=== PATIENT | male | born 1960 | race American Indian/Alaskan Native ===

== ENCOUNTER 2020-06-09 21:25 | Emergency (ER) | payer SELFPAY ==
[2020-06-09] MEDS ORDERED: ONDANSETRON 4 MG ODT TAB PO ONE (21:52)
[2020-06-09 22:09] LABS: Basophils % (Auto) 0.2 % (0.0-1.8); Hematocrit 37.4 % (35.5-45.6); Hemoglobin 12.3 gm/dl (11.8-15.2); Lymphocytes # (Auto) 1.8 K/mm3 (1.2-5.4); Lymphocytes % (Auto) 16.9 % (13.4-35.0); Mean Corpuscular HGB Conc 33 % (32-34); Mean Corpuscular Volume 98 fl (84-94); Monocytes # (Auto) 0.6 K/mm3 (0.0-0.8); Platelet Count 192 K/mm3 (140-440); Red Cell Distribution Width 11.5 % (13.2-15.2)
--- NOTE | 2020-06-09 22:39 | XRay Report ---
CHEST 2 VIEWS INDICATION / CLINICAL INFORMATION: MAHESH. COMPARISON: None available. FINDINGS: SUPPORT DEVICES: None. HEART / MEDIASTINUM: No significant abnormality. LUNGS / PLEURA: No significant pulmonary or pleural abnormality. No pneumothorax. ADDITIONAL FINDINGS: No significant additional findings. IMPRESSION: 1. No acute findings. Signer Name: Nora Chavez MD Signed: 06/09/2020 10:35 PM Workstation Name: [id number]
[2020-06-09 22:41] LABS: Albumin 3.3 g/dL (3.9-5); Calcium 9.3 mg/dL (8.4-10.2)
[2020-06-09] MEDS ORDERED: SODIUM CHLORIDE 0.9% 1000 ML 1,000 ML IV ONE (23:36)
[2020-06-09] MEDS ORDERED: FAMOTIDINE 20 MG/2 ML INJ IV ONE (23:36)
[2020-06-09] MEDS ORDERED: ONDANSETRON 4 MG/2 ML INJ IV ONE (23:36)
[2020-06-09] MEDS ORDERED: PANTOPRAZOLE 40 MG INJ IV ONE (23:36)
--- NOTE | 2020-06-10 01:26 | Emergency Department Report ---
ED N/V/D HPI - General Chief complaint: Dyspnea/Respdistress Stated complaint: MAHESH/VOMITING Time Seen by Provider: 06/09/20 23:29 Source: patient Mode of arrival: Ambulatory Limitations: No Limitations - History of Present Illness Initial comments: Patient is a 59-year-old F [place] male with past medical history of hypertension diabetes and renal insufficiency who is presenting with nausea vomiting. Patient tested positive for COVID-19 4 days ago. States the cough is very minimal and he has no shortness of breath. Patient states for the past day he has had nausea vomiting and mild diarrhea. Has a burning sensation epigastrium. Also states he has elevated blood pressure since he was not able to keep down his blood pressure medicines today. Patient states he feels as though he may be dehydrated. - Related Data Home Medications Medication Instructions Recorded Confirmed Last Taken Insulin Aspart Prot/Aspart(Nf) 20 units SQ DAILY 03/17/16 03/17/16 Unknown [Novolog Mix 70/30] metFORMIN [Glucophage] 500 mg PO BID 03/17/16 03/17/16 Unknown Previous Rx's Medication Instructions Recorded Last Taken Type Acetaminophen/Codeine [Tylenol #3] 1 tab PO Q6H PRN #12 tab 03/17/16 Unknown Rx Clindamycin [Clindamycin CAP] 600 mg PO TID #60 capsule 03/17/16 Unknown Rx Diphenoxylate/Atropine [Lomotil] 1 tab PO Q4H PRN #10 tablet 06/10/20 Unknown Rx Metoprolol [Lopressor TAB] 50 mg PO BID #60 tablet 06/10/20 Unknown Rx Ondansetron [Zofran Odt] 4 mg PO Q8HR #20 tab.rapdis 06/10/20 Unknown Rx Pantoprazole [Protonix] 40 mg PO QDAY #30 tablet 06/10/20 Unknown Rx Allergies Allergy/AdvReac Type Severity Reaction Status Date / Time No Known Allergies Allergy Verified 06/09/20 23:30 ED Review of Systems ROS: Stated complaint: MAHESH/VOMITING Other details as noted in HPI Comment: All other systems reviewed and negative ED Past Medical Hx - Past Medical History Previous Medical History?: Yes Hx Hypertension: Yes Hx Diabetes: Yes - Surgical History Past Surgical History?: No - Social History Smoking Status: Never Smoker Substance Use Type: None - Medications Home Medications: Home Medications Medication Instructions Recorded Confirmed Last Taken Type Acetaminophen/Codeine [Tylenol #3] 1 tab PO Q6H PRN #12 tab 03/17/16 Unknown Rx Clindamycin [Clindamycin CAP] 600 mg PO TID #60 capsule 03/17/16 Unknown Rx Insulin Aspart Prot/Aspart(Nf) 20 units SQ DAILY 03/17/16 03/17/16 Unknown History [Novolog Mix 70/30] metFORMIN [Glucophage] 500 mg PO BID 03/17/16 03/17/16 Unknown History Diphenoxylate/Atropine [Lomotil] 1 tab PO Q4H PRN #10 tablet 06/10/20 Unknown Rx Metoprolol [Lopressor TAB] 50 mg PO BID #60 tablet 06/10/20 Unknown Rx Ondansetron [Zofran Odt] 4 mg PO Q8HR #20 tab.rapdis 06/10/20 Unknown Rx Pantoprazole [Protonix] 40 mg PO QDAY #30 tablet 06/10/20 Unknown Rx ED Physical Exam - General Limitations: No Limitations General appearance: alert, in no apparent distress - Head Head exam: Present: atraumatic, normocephalic - Eye Eye exam: Present: normal appearance, PERRL, EOMI - ENT ENT exam: Present: mucous membranes moist - Neck Neck exam: Present: normal inspection - Respiratory Respiratory exam: Present: normal lung sounds bilaterally. Absent: respiratory distress, wheezes, rales, rhonchi - Cardiovascular Cardiovascular Exam: Present: regular rate, normal rhythm, normal heart sounds. Absent: systolic murmur, diastolic murmur, rubs, gallop - GI/Abdominal GI/Abdominal exam: Present: soft, tenderness (EPIGASTRIC), normal bowel sounds. Absent: distended, guarding, rebound, rigid - Rectal Rectal exam: Present: deferred - Extremities Exam Extremities exam: Present: normal inspection - Back Exam Back exam: Present: normal inspection - Neurological Exam Neurological exam: Present: alert, oriented X3 - Psychiatric Psychiatric exam: Present: normal affect, normal mood - Skin Skin exam: Present: warm, dry, intact, normal color. Absent: rash ED Course Vital Signs 06/09/20 06/09/20 06/09/20 21:31 23:32 23:34 Temperature 98.5 F Pulse Rate 104 H 93 H 99 H Respiratory 18 20 Rate Blood Pressure 191/124 Blood Pressure 223/113 [Right] O2 Sat by Pulse 99 99 Oximetry 06/09/20 06/09/20 06/10/20 23:36 23:46 00:00 Temperature Pulse Rate 100 H 107 H 94 H Respiratory 19 14 16 Rate Blood Pressure 223/113 223/113 202/110 Blood Pressure [Right] O2 Sat by Pulse 100 97 99 Oximetry 06/10/20 06/10/20 06/10/20 00:01 00:15 00:26 Temperature Pulse Rate 93 H 90 Respiratory 17 18 Rate Blood Pressure 202/110 202/119 Blood Pressure [Right] O2 Sat by Pulse 99 Oximetry 06/10/20 06/10/20 06/10/20 00:30 00:46 01:11 Temperature Pulse Rate Respiratory Rate Blood Pressure 190/124 190/124 190/124 Blood Pressure [Right] O2 Sat by Pulse 99 100 95 Oximetry 06/10/20 06/10/20 06/10/20 01:16 01:22 01:30 Temperature Pulse Rate Respiratory Rate Blood Pressure 197/106 254/114 231/117 Blood Pressure [Right] O2 Sat by Pulse 99 100 Oximetry 06/10/20 06/10/20 06/10/20 01:46 02:00 02:16 Temperature Pulse Rate Respiratory Rate Blood Pressure 211/65 211/65 170/122 Blood Pressure [Right] O2 Sat by Pulse 98 98 99 Oximetry 06/10/20 06/10/20 06/10/20 02:30 02:46 03:00 Temperature Pulse Rate Respiratory Rate Blood Pressure 170/122 216/89 216/89 Blood Pressure [Right] O2 Sat by Pulse 99 98 98 Oximetry 06/10/20 06/10/20 06/10/20 03:15 03:30 03:46 Temperature Pulse Rate Respiratory Rate Blood Pressure 208/112 187/109 193/122 Blood Pressure [Right] O2 Sat by Pulse 98 98 99 Oximetry 06/10/20 06/10/20 04:00 04:16 Temperature Pulse Rate Respiratory Rate Blood Pressure 197/108 186/70 Blood Pressure [Right] O2 Sat by Pulse 99 98 Oximetry - Reevaluation(s) Reevaluation #1: 06/10/20 01:31 This time the patient states his nausea is improved but he still has some burning sensations in the epigastrium. Is likely secondary to of some gastritis and will likely take longer to resolve. Blood pressure still elevated in the 190s was given additional 40 mg of labetalol. Reevaluation #2: 06/11/20 00:44 blood pressure decreased to 180 sys. dc home ED Medical Decision Making - Lab Data Result diagrams: 06/09/20 21:56 06/09/20 21:56 Lab Results 06/09/20 06/09/20 Range/Units 21:56 21:56 WBC 10.8 (4.5-11.0) K/mm3 RBC 3.80 (3.65-5.03) M/mm3 Hgb 12.3 (11.8-15.2) gm/dl Hct 37.4 (35.5-45.6) % MCV 98 H (84-94) fl MCH 32 (28-32) pg MCHC 33 (32-34) % RDW 11.5 L (13.2-15.2) % Plt Count 192 (140-440) K/mm3 Lymph % (Auto) 16.9 (13.4-35.0) % [place] % (Auto) 6.0 (0.0-7.3) % Eos % (Auto) 0.0 (0.0-4.3) % Baso % (Auto) 0.2 (0.0-1.8) % Lymph # (Auto) 1.8 (1.2-5.4) K/mm3 [place] # (Auto) 0.6 (0.0-0.8) K/mm3 Eos # (Auto) 0.0 (0.0-0.4) K/mm3 Baso # (Auto) 0.0 (0.0-0.1) K/mm3 Seg Neutrophils % 76.9 H (40.0-70.0) % Seg Neutrophils # 8.3 H (1.8-7.7) K/mm3 Sodium 138 (137-145) mmol/L Potassium 3.3 L (3.6-5.0) mmol/L Chloride 102.1 (98-107) mmol/L Carbon Dioxide 18 L (22-30) mmol/L Anion Gap 21 mmol/L BUN 25 H (9-20) mg/dL Creatinine 3.2 H (0.8-1.3) mg/dL Estimated GFR 24 ml/min BUN/Creatinine Ratio 8 % Glucose 126 H (75-100) mg/dL Calcium 9.3 (8.4-10.2) mg/dL Total Bilirubin 0.40 (0.1-1.2) mg/dL AST 31 (5-40) units/L ALT 23 (7-56) units/L Alkaline Phosphatase 61 (35-129) units/L Total Protein 7.6 (6.3-8.2) g/dL Albumin 3.3 L (3.9-5) g/dL Albumin/Globulin Ratio 0.8 % Critical care attestation.: If time is entered above; I have spent that time in minutes in the direct care of this critically ill patient, excluding procedure time. ED Disposition Clinical Impression: Gastroenteritis due to COVID-19 virus, Hypertensive urgency, Chronic renal insufficiency Disposition: TO HOME OR SELFCARE Is pt being admited?: No Does the pt Need Aspirin: No Condition: Stable Instructions: COVID-19 Frequently Asked Questions, Viral Gastroenteritis, Ruddy lt, [id number], Hypertension, Adult, [id number], Chronic Kidney Disease, Adult, [id number] Prescriptions: Diphenoxylate/Atropine [Lomotil] 1 tab PO Q4H PRN #10 tablet PRN Reason: Diarrhea Metoprolol [Lopressor TAB] 50 mg PO BID #60 tablet Pantoprazole [Protonix] 40 mg PO QDAY #30 tablet Ondansetron [Zofran Odt] 4 mg PO Q8HR #20 tab.rapdis Referrals: BLAKE HART MD [Primary Care Provider] - 3-5 Days
[2020-06-10] MEDS ORDERED: hydrALAZINE 100 MG TAB ONE (02:06)
[2020-06-10] MEDS ORDERED: hydrALAZINE 100 MG TAB PO ONE (02:11)
[2020-06-10 04:45] VITALS: BP 186/70
== END 2020-06-10 04:45 | disposition home or self-care (01) ==
LOC: ED 21:25
DX: K52.89 Other specified noninfective gastroenteritis and colitis (principal); I12.9 Hypertensive chronic kidney disease with stage 1 through stage 4 chronic kidney disease, or unspecified chronic kidney disease; E13.22 Other specified diabetes mellitus with diabetic chronic kidney disease; N18.9 Chronic kidney disease, unspecified
CPT/HCPCS: 36415; 71046; 80053; 85025; 96361; 96374; 96375; 96376; 99284; C9113; J2405; J7030; Q0162